=== PATIENT | male | born 1985 | race Caucasian/White ===

== ENCOUNTER 2020-11-28 17:57 | Emergency (ER) | payer OTHER ==
[~2020-11-28] VITALS: Ht 180.3 cm; Wt 81.7 kg
[2020-11-28 18:01] VITALS: BP 112/77
[2020-11-28] MEDS ORDERED: HYDROCODON-ACE1 EAC7 PO (18:28)
[2020-11-28] MEDS ORDERED: FLEXERIL PO (18:28)
[2020-11-28] MEDS ORDERED: MEDROLDOSEPACK PO (18:28)
--- NOTE | 2020-11-29 09:50 | EKG ---
[address] [address] [place] [address] ELECTROCARDIOGRAM REPORT Name: DEANGELO ZHANG Room #: DEP JAYESH Huntley#: [id number] Admission: 11/28/20 Attend Phys: Discharge: 11/28/20 Date of : 89 Report #: [id number] [facility] ED Test Date: 2020-11-28 Test Time: 18:03:04 Pat Name: DEANGELO ZHANG Department: Room: Gender: M [employer] Professor: phoebe : 1985 Requested By: Baldo Toledo Order Number: [id number] MD: Sunny Ruiz Measurements Intervals Electra Rate: 80 P: 94 CA: 127 QRS: 138 QRSD: 106 T: 123 QT: 325 QTc: 375 Interpretive Statements Sinus rhythm Abnormal T, consider ischemia, lateral leads Baseline wander in lead(s) V2,V3 No previous ECG available for comparison Electronically Signed On 11-29-2020 9:50:18 SPA ASSOCIATE by Sunny Ruiz [email or web address] <ELECTRONICALLY SIGNED> By: Sunny Ruiz MD, [facility] 11/29/20 0950 1803 180 Sunny Ruiz MD, FACC /EPI
== END 2020-11-28 18:49 | disposition home or self-care (01) ==
LOC: ER 17:57
DX: M54.41 Lumbago with sciatica, right side (principal); Z90.49 Acquired absence of other specified parts of digestive tract

== ENCOUNTER 2021-03-10 00:07 | Emergency (ER) | payer OTHER ==
[~2021-03-10] VITALS: Ht 182.9 cm; Wt 81.7 kg
[~2021-03-10 00:07] MED LIST: FLEXERIL PO; HYDROCODON-ACE1 EAC7 PO; MEDROLDOSEPACK PO
[2021-03-10 01:06] LABS: ABSOLUTE NEUTROPHILS 8.8 thou/uL (1.4-8.2); BASOPHILS 0.2 % (0.0-2.0); EOSINOPHILS 3.2 % (0.0-3.0); HEMATOCRIT 46.6 % (42.0-52.0); HEMOGLOBIN 16.3 gm/dL (14.0-18.0); LYMPHOCYTES 5.3 % (24.0-44.0); MCH 31.6 pg (26.0-34.0); MCV 90.3 fL (80.0-100.0); MONOCYTES 6.8 % (1.0-8.0); PLATELET COUNT 213 thou/uL (150-400); POLYS 84.5 % (36.0-66.0); RBC 5.17 mil/uL (4.50-6.00); RDW 13.7 % (10.5-14.5); WBC 10.4 thou/uL (4.0-11.0)
[2021-03-10] MEDS ORDERED: MILK OF MA400 MG/5 M PO (01:10)
[2021-03-10] MEDS ORDERED: PEPCID40 MG PO (01:11)
[2021-03-10 01:15] LABS: CALCIUM 9.1 mg/dL (8.5-10.1); CREATININE 0.8 mg/dL (0.7-1.3); POTASSIUM 3.9 mmol/L (3.5-5.1)
[2021-03-10 01:22] LABS: ALBUMIN 4.2 g/dL (3.4-5.0); TOTAL BILIRUBIN 0.9 mg/dL (0.2-1.0); TOTAL PROTEIN 8.1 g/dL (6.4-8.2)
[2021-03-10] MEDS ORDERED: ZOFRAN ODT4 MG PO (02:28)
[2021-03-10 03:41] VITALS: BP 134/76
== END 2021-03-10 03:30 | disposition home or self-care (01) ==
LOC: ER 00:07
PROVIDERS: Emergency Medicine
DX: R10.13 Epigastric pain (principal); R11.2 Nausea with vomiting, unspecified; R19.7 Diarrhea, unspecified; F12.90 Cannabis use, unspecified, uncomplicated; F15.90 Other stimulant use, unspecified, uncomplicated; Z79.899 Other long term (current) drug therapy; Z90.49 Acquired absence of other specified parts of digestive tract